=== PATIENT | female | born 1940 | race Caucasian/White ===

== ENCOUNTER 2017-11-28 08:07 | Day surgery (SDC) | payer OTHER ==
[2013-03-29 13:47] VITALS: BMI 26.4
[2017-11-28] MEDS ORDERED: LIDOCAINE 1% 20 ML MDV ID STA (08:31)
[2017-11-28] MEDS ORDERED: DIPRIVAN 20 ML VIAL IVP ONE (09:45)
[2017-11-28] MEDS ORDERED: VERSED ONE (09:45)
[2017-11-28 14:58] VITALS: BP 110/65; TEMP 97.5
--- NOTE | 2017-11-29 10:24 | OP ---
PROCEDURE: COLONOSCOPY TO THE CECUM SNARE POLYPECTOMY. ENDOSCOPIST: Bijan GOODE M.D. INDICATION: HISTORY OF POLYPS INSTRUMENT: [employer]-190. MEDICATION: PER ANESTHESIA. PROCEDURE: The patient was positioned for colonoscopy. The digital rectal exam was negative. The colonoscope was inserted through the anus and advanced to the cecum. The cecum was identified using the ileocecal valve and the appendiceal orifice as landmarks. The scope was slowly withdrawn through an adequately prepped colon. The [place] Bowel Prep Score equals 9. A small polyp in the ascending colon removed using cold snare polypectomy. 6mm polyp at 50cm removed using snare cautery. Scattered diverticulosis noted in the left colon. Hemorrhoids seen on retroflex exam. The patient tolerated the procedure without immediate complication. Withdraw time 9 minutes and 39 seconds. PLAN: 1. Repeat as needed. CC: Dr. Ousmane RAINEY
== END 2017-11-28 10:50 | disposition home or self-care (01) ==
LOC: SURG 08:07
PROVIDERS: ATTEND Internal Medicine Gastroenterology
DX: Z09 Encounter for follow-up examination after completed treatment for conditions other than malignant neoplasm (principal); Z86.010 Personal history of colon polyps; D12.2 Benign neoplasm of ascending colon; K57.30 Diverticulosis of large intestine without perforation or abscess without bleeding; K64.9 Unspecified hemorrhoids

== ENCOUNTER 2021-02-17 11:07 | Inpatient (IN) ==
[2021-02-17 11:23] VITALS: BMI 24.3
[2021-02-17 12:05] LABS: BASOPHILS % (AUTO) 0.4 % (0.0-3.0); EOSINOPHILS # (AUTO) 0.2 K/ul (0.0-0.7); HEMATOCRIT 42.2 % (37.0-47.0); HEMOGLOBIN 14.1 g/dl (12.0-16.0); IMMATURE GRANULOCYTE % (AUTO) 0.3 % (0.0-5.0); LYMPHOCYTES # (AUTO) 2.3 K/uL (0.60-3.4); LYMPHOCYTES % (AUTO) 25.5 (10.0-50.0); MEAN CORPUSCULAR HEMOGLOBIN 31.7 pg (27.0-31.0); MEAN CORPUSCULAR HGB CONC 33.4 (31.8-35.4); MEAN CORPUSCULAR VOLUME 94.8 fl (81.0-99.0); MONOCYTES # (AUTO) 0.7 K/uL (0.4-2.0); MONOCYTES % (AUTO) 7.3 (0-10); NEUTROPHILS # (AUTO) 5.7 K/ul (2.0-6.9); NEUTROPHILS % (AUTO) 64.5 % (42.2-75.2); PLATELET COUNT 220 10^3/uL (140-440); RDW COEFFICIENT OF VARIATION 13.2 % (11.6-14.8); RED BLOOD COUNT 4.45 10^6/ul (4.20-5.40); WHITE BLOOD COUNT 8.89 K/ul (4.6-10.2)
[2021-02-17 12:18] LABS: ALANINE AMINOTRANSFERASE 11.3 U/L (0-35); ALBUMIN 4.32 g/dL (3.5-5.0); ALKALINE PHOSPHATASE 85.4 U/L (53-141); ASPARTATE AMINO TRANSFERASE 21.5 U/L (14-36); BILIRUBIN,TOTAL 1.33 mg/dL (0.2-1.3); BLOOD UREA NITROGEN 17.8 mg/dL (7-17); CALCIUM 9.46 mg/dL (8.4-10.2); CARBON DIOXIDE 27.2 mmol/L (22-30.0); CHLORIDE 106.7 mmol/L (98-107); CREATININE 0.74 mg/dL (0.60-1.30); GLUCOSE 87.1 mg/dL (74-106); LIPASE 111.1 U/L (23-300); POTASSIUM 4.11 mmol/L (3.5-5.1); SODIUM 139.1 mmol/L (134.5-145); TOTAL PROTEIN 7.48 g/dL (6.3-8.2)
--- NOTE | 2021-02-17 12:30 | ED.PDOC ---
General ED Provider: Dr. ELIAZAR ALEXANDER Chief Complaint: Chest Wall Injury/Pain Stated Complaint: Chest wall pain=lt side over breast. Worse with inspiration and coughing Time Seen by Provider: 02/17/21 11:50 Mode of Arrival: Walk-In Information Source: Patient Exam Limitations: No limitations Primary Care Provider: BELLO LAN Nursing and Triage Documentation Reviewed and Agree: Yes Does patient meet sepsis criteria?: No System Inflammatory Response Syndrome: Not Applicable Sepsis Protocol: For patient's 13 years and over: Temp is 96.8 and below OR 101 and greater Pulse >90 BPM Resp >20/minute Acutely Altered Mental Status Are patient's symptoms suggestive of a new infection, such as: -Pneumonia -Skin, Soft Tissue -Endocarditis -UTI -Bone, Joint Infection -Implantable Device -Acute Abdominal Infection -Wound Infection -Meningitis -Blood Stream Catheter Infection -Unknown Cardiovascular Complaint Exam Chest Pain Complaint/Exam Onset: Gradual Duration: 8 hrs Symptoms Are: Still present Timing: Intermittent Length of Chest Pain Episodes: 1-2 min Initial Severity: Moderate Current Severity: Mild Location: Reports Left anterior and Left lateral Pain Radiates: Reports None Character: Reports Sharp Alleviating: Reports Rest Associated Signs and Symptoms: Denies Diaphoresis, Nausea, Vomiting, Fever, Palpitations, Cough, Hemoptysis, Back pain, Abdominal pain, Dizziness, Short of air, Calf pain and Calf swelling Related History: Reports Similar episode Related Surgical History: Reports CABG History of Healthcare-Acquired Pneumonia: Reports No AMI/ACS Risk Factors: Reports None TAD Risk Factors: Reports None Pulmonary Embolism Risk Factors: Reports None Prior Care for this Complaint: Yes Recent Stress Test: No Recent Echo/LV Function: No JVD Present: No Subcutaneous Emphysema Present: No Diminshed Breath Sounds: No Reproducible Chest Wall Pain: Yes Bilateral Pulses Present: Yes Unequal Pulses Noted: Yes Chest Picture: 1. If Risk Factors for AMI/ACS Consider: EKG and Cardiac Enzymes Review of Systems Review Of Systems Constitutional: Reports No symptoms Eyes: Reports No symptoms Ears, Nose, Mouth, Throat: Reports No symptoms Respiratory: Reports Cough Cardiac: Reports Chest pain GI: Reports No symptoms : Reports No symptoms Musculoskeletal: Reports No symptoms Skin: Reports No symptoms Neurological: Reports No symptoms Endocrine: Reports No symptoms Hematologic/Lymphatic: Reports No symptoms All Other Systems: Reviewed and Negative [facility] Medical History (Updated 02/17/21 @ 15:13 by ELIAZAR ALEXANDER DO) Hyperlipidemia Hypertension Family History (Updated 02/17/21 @ 12:59 by ELIAZAR ALEXANDER DO) Mother Breast cancer, right, Onset Age: 53 Other Hypertension Social History Smoking and tobacco status: Never smoker Substance use type: does not use Surgical History Status post coronary artery bypass graft Female Reproductive History Menstrual Hx Hysterectomy: No Hx Tubal Ligation: No Physical Exam Physical Exam Appearance: Reports Well-appearing Ill-appearing: Not Applicable Pain Distress: Mild Eyes: Reports PREETI, EOMI, Conjunctiva clear and Conjunctiva inflammed ENT: Reports Ears normal and Nose normal Neck: Supple Respiratory: Reports Airway patent Cardiovascular: Reports RRR, Pulses normal, No rub and No murmur GI/: Reports Soft, Nontender, No masses and Bowel sounds normal Musculoskeletal: Reports Normal strength, ROM intact and No edema Skin: Reports Warm, Dry and Normal color Neurological: Reports Sensation intact, Motor intact, Reflexes intact, Cranial nerves intact, Alert, Oriented, Disoriented and Alert to verbal Psychiatric: Reports Affect appropriate, Mood appropriate and Anxious Interpretation Radiology Interpretation Exam Interpreted: Portable CXR (No acute cardiopulmonary process) EKG Interpretation Time of EKG #1: 11:54 Rate: John Paul Ectopy: PACs [place]: NL ST Segment: Normal Interpretation: Sinus Bradycardia Physician Notification Case Discussed Physician Notified: Dr Lan-admit for observation -I will come to ER and see patient Time of Notification: 13:50 Critical Care Note Critical Care Note Total Critical Care Time (mins): 0 Course Course Hematology/Chemistry: 02/17/21 12:00 02/17/21 12:00 Orders, Labs, Meds: Lab Review 02/17/21 02/17/21 12:00 12:00 WBC 8.89 RBC 4.45 Hgb 14.1 Hct 42.2 MCV 94.8 MCH 31.7 H MCHC 33.4 RDW Coeff of Leanne 13.2 Plt Count 220 Immature Gran % (Auto) 0.3 Neut % (Auto) 64.5 Lymph % (Auto) 25.5 Darke % (Auto) 7.3 Eos % (Auto) 2.0 Baso % (Auto) 0.4 Neut # (Auto) 5.7 Lymph # (Auto) 2.3 Darke # (Auto) 0.7 Eos # (Auto) 0.2 Baso # (Auto) 0.0 Immature Gran # (Auto) 0.0 Sodium 139.1 Potassium 4.11 Chloride 106.7 Carbon Dioxide 27.2 Anion Gap 9.31 BUN 17.8 H Creatinine 0.74 Estimated GFR (MDRD) 75.00 BUN/Creatinine Ratio 24.05 Glucose 87.1 Calcium 9.46 Total Bilirubin 1.33 H AST 21.5 ALT 11.3 Alkaline Phosphatase 85.4 Troponin I < 0.012 Total Protein 7.48 Albumin 4.32 Globulin 3.16 Albumin/Globulin Ratio 1.36 Lipase 111.1 Orders Category Date Time Status EKG-(ED ONLY) Stat CARDIO 02/17/21 11:46 Completed EKG-(IP & OP ONLY) Routine CARDIO 02/17/21 17:00 Ordered ACTIVITY .Up ad Anju CARE 02/17/21 17:00 Active BLOOD GLUCOSE MONITORING 0630,1100,1700,2100 CARE 02/17/21 17:00 Active INTAKE & OUTPUT Q8HR CARE 02/17/21 17:00 Active VITAL SIGNS Q8HR CARE 02/17/21 17:00 Active CARDIAC DIET DIETARY 02/17/21 Dinner Ordered IV [ED IV/MEDIPORT/POWERPORT] .ONCE EMERGENCY 02/17/21 15:13 Active CBC W/ AUTO DIFF Stat LAB 02/17/21 12:00 Completed CMP [COMPREHENSIVE METABOLIC PANEL] Stat LAB 02/17/21 12:00 Completed CREATINE KINASE Q8H LAB 02/17/21 23:00 Ordered CREATINE KINASE Q8H LAB 02/18/21 07:00 Ordered LIPASE Stat LAB 02/17/21 12:00 Completed RESPIRATORY PANEL 2.1 (PCR) Stat LAB 02/17/21 15:54 Received TROPONIN I Q8H LAB 02/17/21 23:00 Ordered TROPONIN I Q8H LAB 02/18/21 07:00 Ordered TROPONIN I Stat LAB 02/17/21 12:00 Completed 0.9 % Sodium Chloride [Saline Flush] MEDS 02/17/21 15:13 Active 1 syr IVF PRN PRN Ascorbic Acid [Vitamin C] MEDS 02/18/21 09:00 Active 500 mg PO DAILY Dexamethasone Sod Phosphate [Decadron] MEDS 02/17/21 17:30 Active 4 mg IVP Q8HR Ketorolac Tromethamine [Toradol] MEDS 02/17/21 16:59 Discontinued 10 mg PO ONCE ONE Ketorolac Tromethamine [Toradol] MEDS 02/17/21 15:17 Discontinued 30 mg IVP ONCE STA Lovastatin [Mevacor] MEDS 02/18/21 09:00 Ordered 20 mg PO DAILY Metoprolol Tartrate [Lopressor] MEDS 02/18/21 09:00 Ordered 25 mg PO DAILY Ondansetron HCl/Pf [Zofran 4 mg/2 ml] MEDS 02/17/21 16:59 Active 4 mg IM Q6H PRN Timolol Maleate 0.25% [Timoptic 0.25% Opth] MEDS 02/17/21 21:00 Ordered 1 drop RIGHTEYE BID aspirin,buffd-calcium carb-mag MEDS 02/18/21 09:00 Ordered 325 mg PO DAILY calcium carbonate-vitamin D3 MEDS 02/17/21 21:00 Ordered 1 tab PO BID vitamin E MEDS 02/18/21 09:00 Ordered 400 unit PO DAILY RESUSCITATION STATUS Routine OTHERS 02/17/21 16:59 Ordered CHEST, 1V AP ONLY Stat RADS 02/17/21 11:46 Completed Medications Generic Name Dose Route Start Last Admin Trade Name Freq PRN Reason Stop Dose Admin Ascorbic Acid 500 mg 02/18/21 09:00 Ascorbic Acid 500 Mg Tablet PO DAILY [facility] Dexamethasone Sodium Phosphate 4 mg 02/17/21 17:30 Dexamethasone Sod Phos 4 Mg/Ml Inj IVP Q8HR [facility] Lovastatin 20 mg 02/18/21 09:00 Lovastatin 20 Mg Tablet PO DAILY [facility] Metoprolol Tartrate 25 mg 02/18/21 09:00 Metoprolol Tartrate 25 Mg Tablet PO DAILY JAIMIE Non-Formulary Medication 325 mg 02/18/21 09:00 Aspirin,Buffd-Calcium Carb-Mag PO DAILY JAIMIE Non-Formulary Medication 1 tab 02/17/21 21:00 Calcium Carbonate-Vitamin D3 PO BID JAIMIE Non-Formulary Medication 400 unit 02/18/21 09:00 Vitamin E PO DAILY JAIMIE Ondansetron HCl 4 mg 02/17/21 16:59 Ondansetron Hcl/Pf 4 Mg/2 Ml Sdv IM Q6H PRN Nausea / Vomiting Sodium Chloride 1 syr 02/17/21 15:13 02/17/21 15:58 0.9% Sodium Chloride 10 Ml Disp.Syrin IVF 1 syr PRN PRN Administration To flush IV Timolol Maleate 1 drop 02/17/21 21:00 Timolol Maleate 5 Ml Opth Inez RIGHTEYE BID JAIMIE Discontinued Medications Generic Name Dose Route Start Last Admin Trade Name Freq PRN Reason Stop Dose Admin Ketorolac Tromethamine 30 mg 02/17/21 15:17 02/17/21 15:57 Ketorolac Tromethamine 30 Mg/Ml Vial IVP 02/17/21 15:18 30 mg ONCE STA Administration Ketorolac Tromethamine 10 mg 02/17/21 16:59 Ketorolac Tromethamine 10 Mg Tablet PO 02/17/21 17:00 ONCE ONE Vital Signs: Temp Pulse Resp BP Pulse Ox 02/17/21 11:13 97.9 F 61 18 174/84 H 96 QUE Risk Score QUE Risk Score: Risk Score Odds of by 30D 0 0.1 (0.1-0.2) 1 0.3 (0.2-0.3) 2 0.4 (0.3-0.5) 3 0.7 (0.6-0.9) 4 1.2 (1.0-1.5) 5 2.2 (1.9-2.6) 6 3.0 (2.5-3.6) 7 4.8 (3.8-6.1) Discharge Plan Discharge Patient Disposition: PLACED OBSERVATION Discharge Problem: Chest wall pain ED Provider: ELIAZAR ALEXANDER Condition: Fair Physician Progress Note: []
[2021-02-17 12:32] LABS: TROPONIN I < 0.012 ng/ml (0.0000-0.120)
--- NOTE | 2021-02-17 12:51 | DI ---
EXAM: Chest one view, frontal view only. HISTORY: Chest pain. COMPARISON: 10/01/2015. FINDINGS: Sternotomy wires and mediastinal clips noted. Atherosclerotic calcifications present. The heart size is normal. There is no pulmonary vascular congestion. Band-like opacity in the right up per lung. Previous CT demonstrated multifocal opacities, most suggestive of this as scarring. Other carter, the lungs are clear. No pleural effusion or pneumothorax is seen. No acute osseous abnormalit y is identified. Since the prior study, there has been no significant interval change. IMPRESSION: No acute cardiopulmonary process.
[2021-02-17] MEDS ORDERED: TORADOL IM STA (14:47)
[2021-02-17] MEDS ORDERED: TORADOL IVP STA (15:17)
[2021-02-17 16:31] LABS: BORDETELLA PARAPERTUSSIS (PCR) NOT DETECTED (NOT DETECT); BORDETELLA PERTUSSIS (PCR) NOT DETECTED (NOT DETECT); CHLAMYDIA PNEUMONIAE (PCR) NOT DETECTED (NOT DETECT); CORONAVIRUS 229E (PCR) NOT DETECTED (NOT DETECT); CORONAVIRUS HKU1 (PCR) NOT DETECTED (NOT DETECT); CORONAVIRUS NL63 (PCR) NOT DETECTED (NOT DETECT); CORONAVIRUS OC43 (PCR) NOT DETECTED (NOT DETECT); HUMAN METAPNEUMOVIRUS (PCR) NOT DETECTED (NOT DETECT); HUMAN RHINOVIRUS/ENTEROV (PCR) NOT DETECTED (NOT DETECT); INFLUENZA B (PCR) NOT DETECTED (NOT DETECT); MYCOPLASMA PNEUMONIAE (PCR) NOT DETECTED (NOT DETECT); PARAINFLUENZA VIRUS 1 (PCR) NOT DETECTED (NOT DETECT); PARAINFLUENZA VIRUS 2 (PCR) NOT DETECTED (NOT DETECT); PARAINFLUENZA VIRUS 3 (PCR) NOT DETECTED (NOT DETECT); PARAINFLUENZA VIRUS 4 (PCR) NOT DETECTED (NOT DETECT); RESPIRATORY SYNCYTIAL V (PCR) NOT DETECTED (NOT DETECT); SARS_COV_2 (PCR) NOT DETECTED (NOT DETECT)
[2021-02-17] MEDS ORDERED: TORADOL PO ONE (16:59)
[2021-02-17] MEDS ORDERED: ZOFRAN 4 MG/2 ML IM PRN (16:59)
[2021-02-17 17:21] LABS: ADENOVIRUS (PCR) NOT DETECTED (NOT DETECT)
[2021-02-17] MEDS: DECADRON IVP SCH ×2 (17:43→21:57)
[2021-02-17] MEDS ORDERED: CALCIUM 500 + VIT D 5 MCG (200 IU) TABLET PO SCH (21:00)
[2021-02-17] MEDS ORDERED: LUMIGAN 0.03% EACHEYE SCH (21:00)
[2021-02-17] MEDS ORDERED: TIMOPTIC 0.25% OPTH RIGHTEYE SCH (21:00)
[2021-02-17] MEDS: TIMOPTIC 0.25% OPTH EACHEYE SCH (21:29)
[2021-02-17 22:57] LABS: CREATINE KINASE 25.3 U/L (30-135)
[2021-02-17 23:11] LABS: TROPONIN I < 0.012 ng/ml (0.0000-0.120)
[2021-02-17] MEDS ORDERED: ATROPINE SULFATE PFS IVP PRN (23:26)
[2021-02-17] MEDS ORDERED: TYLENOL PO PRN (23:26)
[2021-02-17] MEDS ORDERED: NITROSTAT SL PRN (23:26)
[2021-02-18 05:31] VITALS: BP 119/66; TEMP 98
[2021-02-18] MEDS: DECADRON IVP SCH ×2 (05:32→13:32)
[2021-02-18 06:39] LABS: BASOPHILS % (AUTO) 0.1 % (0.0-3.0); HEMATOCRIT 45.6 % (37.0-47.0); HEMOGLOBIN 14.9 g/dl (12.0-16.0); IMMATURE GRANULOCYTE % (AUTO) 0.5 % (0.0-5.0); LYMPHOCYTES # (AUTO) 1.1 K/uL (0.60-3.4); LYMPHOCYTES % (AUTO) 14.7 (10.0-50.0); MEAN CORPUSCULAR HEMOGLOBIN 31.2 pg (27.0-31.0); MEAN CORPUSCULAR HGB CONC 32.7 (31.8-35.4); MEAN CORPUSCULAR VOLUME 95.4 fl (81.0-99.0); MONOCYTES # (AUTO) 0.1 K/uL (0.4-2.0); MONOCYTES % (AUTO) 0.8 (0-10); NEUTROPHILS # (AUTO) 6.3 K/ul (2.0-6.9); NEUTROPHILS % (AUTO) 83.9 % (42.2-75.2); PLATELET COUNT 237 10^3/uL (140-440); RDW COEFFICIENT OF VARIATION 13.2 % (11.6-14.8); RED BLOOD COUNT 4.78 10^6/ul (4.20-5.40); WHITE BLOOD COUNT 7.55 K/ul (4.6-10.2)
[2021-02-18 06:51] LABS: ALKALINE PHOSPHATASE 82.4 U/L (53-141); ASPARTATE AMINO TRANSFERASE 25.4 U/L (14-36); BILIRUBIN,TOTAL 1.08 mg/dL (0.2-1.3); BLOOD UREA NITROGEN 21.7 mg/dL (7-17); CALCIUM 9.28 mg/dL (8.4-10.2); CARBON DIOXIDE 27.3 mmol/L (22-30.0); CHLORIDE 105.2 mmol/L (98-107); CREATINE KINASE 30.4 U/L (30-135); CREATININE 0.68 mg/dL (0.60-1.30); GLUCOSE 140.4 mg/dL (74-106); POTASSIUM 4.31 mmol/L (3.5-5.1); SODIUM 140.8 mmol/L (134.5-145); TOTAL PROTEIN 7.92 g/dL (6.3-8.2)
[2021-02-18 06:57] LABS: ALANINE AMINOTRANSFERASE 14.2 U/L (0-35)
[2021-02-18 07:11] LABS: TROPONIN I < 0.012 ng/ml (0.0000-0.120)
[2021-02-18] MEDS ORDERED: ASPIRIN EC PO SCH (08:30)
[2021-02-18] MEDS ORDERED: CALCIUM 500 + VIT D 5 MCG (200 IU) TABLET PO SCH (09:00)
[2021-02-18] MEDS ORDERED: VITAMIN E PO SCH (09:00)
[2021-02-18] MEDS ORDERED: VITAMIN C PO SCH (09:00)
[2021-02-18] MEDS ORDERED: LOPRESSOR PO SCH (09:00)
[2021-02-18] MEDS ORDERED: MEVACOR PO SCH ×2 (09:00→17:00)
[2021-02-18] MEDS: TIMOPTIC 0.25% OPTH EACHEYE SCH (09:48)
[2021-02-18] MEDS ORDERED: TORADOL IVP ONE (13:15)
[2021-02-18] MEDS ORDERED: LUMIGAN 0.03% EACHEYE SCH (17:00)
--- NOTE | 2021-02-19 08:55 | PN ---
DATE OF SERVICE: 02/17/2021 SUBJECTIVE: The patient was seen and examined in the emergency room. She came to the emergency room with chest pain which was atypical but had some component of coronary insufficiency. The patient had left sided chest pain mostly chest wall type of pain with tenderness. The patient had pain on deep breathing. No exertional chest pain noted. The patient had coronary artery bypass surgery. She is very anxious. Her EKG is sinus rhythm. No ST-T wave change. Cardiac markers were negative. Chest x-ray was negative. COVID test negative. ASSESSMENT: 1. Chest pain seems to be noncardiac. The patient's pain also radiates to the left arm. That is the only component of the pain which is hard to explain on the basis of musculoskeletal pain. The patient is going to hospitalized with routine telemetry orders. CONDITION: Stable. TIME SPENT: More than 30 minutes. Plan and coordination of the patient's care discussed in the presence of nurse. REDD
--- NOTE | 2021-02-19 09:17 | PN ---
DATE OF SERVICE: 02/18/2021 SUBJECTIVE: 81 year old white female hospitalized with chest pain. The patient's chest pain seems to be noncardiac. The patient did not have any chest pain while she is in the hospital. Her pleuritic type of pain has practically subsided. She has a mild pain. Still breathing pain noted. REVIEW OF SYSTEMS: CONSTITUTIONAL: No night sweats. No fatigue, malaise, lethargy. No fever or chills. Feeling better. HEENT: Eyes: No visual changes. No eye pain. No eye discharge. ENT: No runny nose. No epistaxis. No sinus pain. No sore throat. No odynophagia. No congestion. RESPIRATORY: No cough, no congestion. No hemoptysis. No shortness of breath. Mild chest wall pain practically has subsided. Pleuritic pain has subsided. CARDIOVASCULAR: No angina symptoms. No CHF symptoms. No atypical chest pain for CAD. No palpitations. No PND. No orthopnea. GASTROINTESTINAL: No abdominal pain. No nausea or vomiting. No diarrhea or constipation. No hematemesis. No hematochezia. GENITOURINARY: No urgency. No frequency. No dysuria. No hematuria. No obstructive symptoms. No discharge. No pain. No significant abnormal bleeding. MUSCULOSKELETAL: No musculoskeletal pain; no joint swelling. NEUROLOGICAL: No headache. No neck pain. No syncope. No seizures. No dizziness. PSYCHIATRIC: Not anxious. No depression. No suicidal thoughts. No homicidal thoughts. SKIN: No rash. No lesions. No wounds. ENDOCRINE: No unexplained weight loss. No weight gain. HEMATOLOGIC/LYMPHATIC: No anemia. No purpura. No petechiae. No prolonged or excessive bleeding. No palpable lymph nodes. PHYSICAL EXAMINATION: VITAL SIGNS: Temperature 98, pulse 65, respiratory rate 18, blood pressure 120/66 and pulse ox 98%. HEENT: Head normocephalic, atraumatic. Eyes: Extraocular muscles are intact. Pupils are equal, round and reactive to light and accommodation. Ears: No lesions. Nose appeared normal. Throat: No exudate or erythema. NECK: Supple. No JVD, no carotid bruit. No lymphadenopathy or thyromegaly. LUNGS: Decreased breath sounds but clear to auscultation. Percussion note normal. Chest symmetrical. HEART: S1, S2, no S3. No murmurs. No cyanosis or clubbing. No ascites. Pulses: Dorsalis pedis and posterior tibial pulses +1 to +2 bilaterally. ABDOMEN: Soft. Nontender. Bowel sounds active. No CVA tenderness. No mass felt. EXTREMITIES: No edema. Full range of motion of all extremities, equal. NEUROLOGIC: No focal deficit. Cranial nerves II through XII are grossly intact. No headache. No double vision. SKIN: Not dry. Intact. Turgor - normal. LYMPHATIC: No palpable lymph nodes/no lymphedema. MUSCULOSKELETAL: Normal joints with no swelling. Muscle tone is normal. LABS: hgb 14, hct 45, WBC 7,500 normal differential, creatinine 0.6, BUN 21, potassium 4.3. ASSESSMENT: 1. Chest pain wall,, chest pain, pleuritic type of pain seems to be under control PLAN: 1. Continue telemetry, the patient's echocardiogram showed normal LV contractility and LVH. LA enlargement. 2. Negative cardiac markers. 3. EKG sinus rhythm unchanged 4. Chest pain non-cardiac. The patient had a stress echo done in October. The patient declined to have repeat stress echo or sestamibi done. 5. The patient wants to go home. She is going to be discharged home. 6. No change in the medication 7. Before discharge the patient is going to get 1cc Decadron and Toradol 30mg IV one dose for pleurisy. 8. The patient is advised to go to the nearest ER in case chest pain recurs. TIME SPENT: More than 30 minutes. Plan and coordination of the patient's care discussed in the presence of nurse. REDD
--- NOTE | 2021-02-19 09:18 | PN ---
02/17/2021: Level 5 02/18/2021: D as in discharge. MTDD
--- NOTE | 2021-02-20 10:58 | HP ---
DATE OF SERVICE: 02/17/21 HISTORY OF PRESENT ILLNESS: This is an 81-year-old white female who presents to the emergency room with chest wall pain on the left side over her breast. She denies shortness of breath or sweating. PAST MEDICAL HISTORY: Urinary incontinence with prolapsed bladder Dizziness History of herpes zoster in July of 2018 GERD Glaucoma Coronary artery disease Hypertension Hiatal hernia Hyperglycemia Right knee osteoarthritis Asthma Degenerative disk disease of the L-spine Hearing loss PAST SURGICAL HISTORY: CABG in 2001 Colonoscopy in November of 2017 REVIEW OF SYSTEMS: CONSTITUTIONAL: No night sweats. No fatigue, malaise, lethargy. No fever or chills. No sweating. HEENT: Eyes: No visual changes. No eye pain. No eye discharge. ENT: No runny nose. No epistaxis. No sinus pain. No sore throat. No odynophagia. No ear pain. No congestion. RESPIRATORY: No cough, no congestion. No hemoptysis. No shortness of breath. CARDIOVASCULAR: Positive for chest wall pain, worse with movement, deep breathing. No angina symptoms. No CHF symptoms. No atypical chest pain for CAD. No palpitations. No PND. No orthopnea. GASTROINTESTINAL: No abdominal pain. No nausea or vomiting. No diarrhea or constipation. No hematemesis. No hematochezia. GENITOURINARY: No urgency. No frequency. No dysuria. No hematuria. No obstructive symptoms. No discharge. No pain. No significant abnormal bleeding. MUSCULOSKELETAL: No musculoskeletal pain. No joint swelling. No arthritis. NEUROLOGICAL: No headache. No neck pain. No syncope. No seizures. No dizziness. PSYCHIATRIC: Not anxious. No depression. No suicidal thoughts. No homicidal thoughts. SKIN: No rash. No lesions. No wounds. ENDOCRINE: No unexplained weight loss. No weight gain. HEMATOLOGIC/LYMPHATIC: No anemia. No purpura. No petechiae. No prolonged or excessive bleeding. No palpable lymph nodes. PERSONAL/FAMILY/SOCIAL HISTORY: She is . She lives at home alone. She is a nonsmoker. No alcohol or illicit drug use. MEDICATIONS: Timolol one drop both eyes b.i.d. Gilchrist-3 Fatty acids-fish oil one each p.o. daily Aspirin 325 mg p.o. daily Vitamin C 500 mg p.o. daily Calcium Carbonate - Vitamin D3 one tab p.o. daily Metoprolol Tartrate 25 mg p.o. daily Lovastatin 20 mg p.o. daily Bimatoprost (Lumigan) one drop both eyes q.p.m. ALLERGIES: LEVOBUNOLOL PHYSICAL EXAMINATION: GENERAL: Alert and oriented. VITAL SIGNS: Temperature 97.9, heart rate 61, respirations 18, blood pressure 174/84, pulse ox 96%. HEENT: Head normocephalic, atraumatic. Eyes: Extraocular muscles are intact. Pupils are equal, round and reactive to light and accommodation. Ears: No lesions. Nose appeared normal. Throat: No exudate or erythema. NECK: Supple. No JVD, no carotid bruit. No lymphadenopathy or thyromegaly. LUNGS: Diminished breath sounds. Clear to auscultation. Percussion note normal. Chest symmetrical. No chest wall tenderness. HEART: S1, S2, no S3. No murmur. No cyanosis or clubbing. No ascites. Pulses: Dorsalis pedis and posterior tibial pulses +1 to +2 bilaterally. ABDOMEN: Soft. Nontender. Bowel sounds active. No CVA tenderness. No mass felt. EXTREMITIES: No edema. Full range of motion of all extremities, equal. NEUROLOGIC: No focal deficit. Cranial nerves II through XII are grossly intact. No headache, no double vision or headache. SKIN: Not dry. Intact. Turgor - normal. LYMPHATIC: No palpable lymph nodes/no lymphedema. MUSCULOSKELETAL: Normal joints with no swelling. Muscle tone is normal. Chest x-ray shows no acute process. EKG shows normal sinus rhythm. White count 8.8, hemoglobin 14.1, hematocrit 42.2, platelets 220. Sodium 139, potassium 4.1, BUN 17, creatinine 0.74, glucose 87, troponin less than 0.012. Alkaline phosphatase 85, total bili 1.33, lipase 111. AST 21, ALT 11. ASSESSMENT: 1. LEFT-SIDED CHEST WALL PAIN, PLEURITIC IN NATURE 2. HYPERTENSION 3. HISTORY OF CORONARY ARTERY DISEASE WITH CABG PLAN: 1. We will admit. 2. Routine telemetry orders. 3. CBC, CMP daily. 4. Toradol 30 mg IV q.8hr p.r.n. 5. Start 1 cc/4 mg Decadron IM daily. 6. 2D echo. 7. Continue home medications. 8. UA with culture. 9. Will monitor cardiac markers. 10. Regular diet. 11. Oxygen 1 to 2L as needed. 12. Will follow closely. TIME SPENT: More than 70 minutes. MTDD
--- NOTE | 2021-02-23 07:59 | ECHO2D ---
Date of Exam: 02/18/2021 Ordering Physician: DR. BELLO LAN Room #:[id number] Reason for Echo: CHEST PAIN, HX CABG M-Mode Normal Adult Results LV Dimensions Normal Adult Results AoV Opening excursions >1.6 >1.6 LVEDD-base- 3.5-5.8 4.6 Ao root dimensions 2.0-3.7 2.9 LVESD-base- 3.1-4.6 L. Atrium dimensions 1.9-3.8 3.9 Post. Wall thickness 0.8-1.1 1.1 IV septum (thickness) 0.7-1.2 1.2 Post. Wall excursion 0.72-1.3 NORMAL Septal motion NORMAL Systolic motion R. Ventricular cavity 1.5-2.0 NORMAL LVEF 60% 66% Paradoxical septal wall motion NORMAL 2-D : 2-D M Mode Echocardiogram was performed using apical four chamber and left parasternal long and short axis views. Mitral, tricuspid and aortic valves appear to be normal. Contractility of the left ventricle seems to be normal, so is the cavity size. Left atrial cavity size and aortic root appear to be normal. There is no pericardial effusion. There is no thrombus noted in the left ventricle or left atrial cavity. M-MODE: MV: NORMAL AV: NORMAL TV: NORMAL PV: CHAMBER SIZE: NORMAL WALL MOTION: NORMAL PERICARDIUM: NORMAL INTERPRETATION: 1. BORDERLINE LEFT VENTRICLE HYPERTROPHY 2. NORMAL LEFT VENTRICLE CONTRACTILITY 3. NORMAL VALVES MTDD
--- NOTE | 2021-02-23 10:28 | DS ---
DATE OF SERVICE: 02/18/21 FINAL DIAGNOSIS: 1. CHEST WALL PAIN, LEFT-SIDED 2. PLEURISY 3. HYPERTENSION 4. CORONARY ARTERY DISEASE 5. HISTORY OF CABG DISCHARGE INSTRUCTIONS: Discharge the patient home. MEDICATIONS AT DISCHARGE: Ascorbic Acid (Vitamin C) 500 mg capsule p.o. daily Aspirin micmeumq-ddaydji-Gkxi-mag 325 mg p.o. daily Calcium Carbonate-Vitamin D3 one tablet p.o. daily Lovastatin 20 mg p.o. daily Lumigan eyedrops one drop both eyes q.p.m. Metoprolol Tartrate 25 mg p.o. daily [place] 3 fatty acids-fish oil one each p.o. daily Timolol Maleate one drop both eyes b.i.d. Vitamin E 400 unit p.o. daily NEW PRESCRIPTIONS: None DIET INSTRUCTIONS: Heart Healthy ACTIVITY: As tolerated. SMOKING: Never smoker DISEASE SPECIFIC EDUCATION: Chest pain How to wash hands Noncardiac chest pain Covid-19 HOSPITAL COURSE: This is a 81-year-old white female who presented to the emergency room with left-sided chest wall pain. She denied any shortness of breath or sweating. She does have known history of coronary artery disease. On admission in ER cardiac enzymes were negative. EKG was normal. She was admitted for further evaluation with serial cardiac markers which remain negative. Placed on 24 hour telemetry which was also normal. Dr. Romeo did an echo which showed LV contractility was normal and mild LVH. She had a stress echo done in October which was normal. She declined to have a repeat stress echo or Sestamibi done. The patient's chest pain is noncardiac in nature. She responded well. She received steroids in the emergency room along with antiinflammatory Toradol. She has responded well to this. Today she will receive another Decadron and Toradol dose before she goes home. Blood pressure was elevated in the emergency room likely due to pain. However, this has been normal for the past 12 hours. Chest x-ray was normal. There was no acute process. She has responded well to treatment, will send her home with a steroid pack and followup with her in the office next week. TIME SPENT: More than 60 minutes. [facility]
== END 2021-02-18 14:21 | disposition home or self-care (01) | DRG 195 ==
LOC: ED 11:07 → MEDSURG A 11:07 → OBSVTOIN 17:40 → MEDSURG A 18:22
PROVIDERS: ADMIT Internal Medicine; ATTEND Internal Medicine
DX: R05 Cough; R09.1 Pleurisy; I25.10 Atherosclerotic heart disease of native coronary artery without angina pectoris; I10 Essential (primary) hypertension; Z20.822 Contact with and (suspected) exposure to COVID-19

== ENCOUNTER 2022-03-25 10:10 | Inpatient (IN) ==
[2022-03-25] MEDS ORDERED: MORPHINE 2 MG/ML SYRINGE IVP ONE ×2 (10:43→12:04)
[2022-03-25] MEDS ORDERED: GI COCKTAIL PO ONE (10:43)
[2022-03-25] MEDS ORDERED: ASPIRIN CHEWABLE PO STA (10:43)
--- NOTE | 2022-03-25 10:46 | ED.PDOC ---
General ED Provider: Dr. NICHOLAS SANTILLAN MD Chief Complaint: Chest Pain Stated Complaint: mild anterior chest pain ache rad to back off and on since Tuesday, no injury, not short of breath, hx cabg, no dm Time Seen by Provider: 03/25/22 10:10 Mode of Arrival: Walk-In Information Source: Patient Primary Care Provider: BELLO ROMEO Nursing and Triage Documentation Reviewed and Agree: Yes Does patient meet sepsis criteria?: No System Inflammatory Response Syndrome: Not Applicable Sepsis Protocol: For patient's 13 years and over: Temp is 96.8 and below OR 101 and greater Pulse >90 BPM Resp >20/minute Acutely Altered Mental Status Are patient's symptoms suggestive of a new infection, such as: -Pneumonia -Skin, Soft Tissue -Endocarditis -UTI -Bone, Joint Infection -Implantable Device -Acute Abdominal Infection -Wound Infection -Meningitis -Blood Stream Catheter Infection -Unknown Review of Systems Review Of Systems Constitutional: Denies Fever Eyes: Denies Vision change Ears, Nose, Mouth, Throat: Denies Throat pain Respiratory: Denies Short of air Cardiac: Reports Chest pain GI: Denies Abdominal pain or Vomiting : Denies Frequency Musculoskeletal: Denies Neck pain Skin: Denies Rash Neurological: Denies Cognitive dysfunction All Other Systems: Other [facility] Medical History (Updated 03/25/22 @ 13:52 by NICHOLAS SANTILLAN MD) Hyperlipidemia Hypertension Family History Mother Breast cancer, right, Onset Age: 53 Other Hypertension Social History Smoking and tobacco status: Never smoker Substance use type: does not use Surgical History Status post coronary artery bypass graft Female Reproductive History Menstrual Hx Hysterectomy: No Hx Tubal Ligation: No Physical Exam Physical Exam Appearance: Reports Well-appearing Ill-appearing: None Pain Distress: Mild Eyes: Reports PREETI, EOMI and Conjunctiva clear ENT: Reports Oropharynx normal Neck: Supple Respiratory: Reports Airway patent, Breath sounds clear and Breath sounds equal Cardiovascular: Reports RRR GI/: Reports Soft and Nontender Musculoskeletal: Reports ROM intact and No edema Skin: Reports Warm and Dry Neurological: Reports Alert and Oriented Psychiatric: Reports Affect appropriate Interpretation Radiology Interpretation Radiology Interpretation By: Radiologist Exam Interpreted: CXR Xray Comments: right pleural effusion EKG Interpretation Time of EKG #1: 13:51 Rate: Normal Rhythm: Sinus Interpretation: no stemi Critical Care Note Critical Care Note Total Critical Care Time (mins): 0 Course Course Hematology/Chemistry: 03/25/22 11:35 03/25/22 11:35 Orders, Labs, Meds: Lab Review 03/25/22 03/25/22 03/25/22 11:20 11:35 11:35 WBC 10.77 H RBC 4.38 Hgb 13.9 Hct 42.2 MCV 96.3 MCH 31.7 H MCHC 32.9 RDW Coeff of Leanne 13.1 Plt Count 228 Immature Gran % (Auto) 0.5 Neut % (Auto) 73.5 Lymph % (Auto) 14.8 [place] % (Auto) 9.2 Eos % (Auto) 1.5 Baso % (Auto) 0.5 Neut # (Auto) 7.9 H Lymph # (Auto) 1.6 [place] # (Auto) 1.0 Eos # (Auto) 0.2 Baso # (Auto) 0.1 Immature Gran # (Auto) 0.1 PT 10.3 INR 0.99 Sodium Potassium Chloride Carbon Dioxide Anion Gap BUN Creatinine Estimated GFR (MDRD) BUN/Creatinine Ratio Glucose Calcium Total Bilirubin AST ALT Alkaline Phosphatase Troponin I Total Protein Albumin Globulin Albumin/Globulin Ratio Lipase SARS CoV-2 RNA Rapid DEEPIKA Negative 03/25/22 11:35 WBC RBC Hgb Hct MCV MCH MCHC RDW Coeff of Leanne Plt Count Immature Gran % (Auto) Neut % (Auto) Lymph % (Auto) [place] % (Auto) Eos % (Auto) Baso % (Auto) Neut # (Auto) Lymph # (Auto) [place] # (Auto) Eos # (Auto) Baso # (Auto) Immature Gran # (Auto) PT INR Sodium 140.3 Potassium 3.94 Chloride 106.8 Carbon Dioxide 26.0 Anion Gap 11.44 BUN 11.9 Creatinine 0.64 Estimated GFR (MDRD) 88.00 BUN/Creatinine Ratio 18.59 Glucose 102.9 Calcium 8.95 Total Bilirubin 0.86 AST 17.8 ALT 12.1 Alkaline Phosphatase 83.4 Troponin I < 0.012 Total Protein 7.35 Albumin 4.02 Globulin 3.33 Albumin/Globulin Ratio 1.20 Lipase 72.9 SARS CoV-2 RNA Rapid DEEPIKA Orders Category Date Time Status EKG-(ED ONLY) Stat CARDIO 03/25/22 10:46 Completed CBC W/ AUTO DIFF Stat LAB 03/25/22 11:35 Completed CMP [COMPREHENSIVE METABOLIC PANEL] Stat LAB 03/25/22 11:35 Completed LIPASE Stat LAB 03/25/22 11:35 Completed PT WITH INR Stat LAB 03/25/22 11:35 Completed SARS COV-2 RNA RAPID DEEPIKA Stat LAB 03/25/22 11:20 Completed TROPONIN I Stat LAB 03/25/22 11:35 Completed Aspirin [Aspirin Chewable] MEDS 03/25/22 10:43 Discontinued 324 mg PO ONCE STA Mag-Al Plus//Lidocaine [Gi Cocktail] MEDS 03/25/22 10:43 Discontinued 30 ml PO ONCE ONE Morphine Sulfate [Morphine 2 mg/ml Syringe] MEDS 03/25/22 10:43 Discontinued 2 mg IVP ONCE ONE Morphine Sulfate [Morphine 2 mg/ml Syringe] MEDS 03/25/22 12:04 Discontinued 2 mg IVP ONCE ONE Ondansetron HCl/Pf [Zofran 4 mg/2 ml] MEDS 03/25/22 11:02 Discontinued 4 mg IVP ONCE ONE CHEST, 1V AP ONLY Stat RADS 03/25/22 10:43 Completed Medications Discontinued Medications Generic Name Dose Route Start Last Admin Trade Name Freq PRN Reason Stop Dose Admin Al Hydroxide/Mg Hydroxide 30 ml 03/25/22 10:43 03/25/22 11:33 Mag-Al Plus//Lidocaine 30 Ml Btl PO 03/25/22 10:44 30 ml ONCE ONE Administration Aspirin 324 mg 03/25/22 10:43 03/25/22 10:46 Aspirin 81 Mg Tab.Chew PO 03/25/22 10:44 Not Given ONCE STA Morphine Sulfate 2 mg 03/25/22 10:43 03/25/22 11:27 Morphine Sulfate 2 Mg/Ml Syringe IVP 03/25/22 10:44 2 mg ONCE ONE Administration Morphine Sulfate 2 mg 03/25/22 12:04 03/25/22 12:08 Morphine Sulfate 2 Mg/Ml Syringe IVP 03/25/22 12:05 2 mg ONCE ONE Administration Ondansetron HCl 4 mg 03/25/22 11:02 03/25/22 11:26 Ondansetron Hcl/Pf 4 Mg/2 Ml Sdv IVP 03/25/22 11:03 4 mg ONCE ONE Administration Vital Signs: Temp Pulse Resp BP Pulse Ox 03/25/22 10:11 97.5 F L 65 18 166/76 H 96 QUE Risk Score QUE Risk Score: Risk Score Odds of by 30D 0 0.1 (0.1-0.2) 1 0.3 (0.2-0.3) 2 0.4 (0.3-0.5) 3 0.7 (0.6-0.9) 4 1.2 (1.0-1.5) 5 2.2 (1.9-2.6) 6 3.0 (2.5-3.6) 7 4.8 (3.8-6.1) Discharge Plan Discharge Patient Disposition: ADMITTED INPATIENT Discharge Problem: Chest pain Prescriptions: No Action aspirin,buffd-calcium carb-mag 325 MG tablet 325 mg PO DAILY ascorbic acid (vitamin C) [Vitamin C] 500 MG capsule, extended release 500 mg PO DAILY lovastatin [Mevacor] 20 MG tablet 20 mg PO DAILY vitamin E 400 UNIT capsule 400 unit PO DAILY metoprolol tartrate 25 MG tablet 25 mg PO DAILY omega-3 fatty acids-fish oil 1 EACH capsule 1 ea PO DAILY Lumigan 0.01 % Drops 1 drp BOTHEYES QPM calcium 600 mg Capsule 600 mg PO DAILY dorzolamide-timolol 22.3-6.8 mg/mL drops 1 drp BOTHEYES BID Label Comments: INSTILL 1 DROP IN BOTH EYES TWICE DAILY Did you review [place] PENCIL MAKER?: Not Applicable ED Provider: NICHOLAS SANTILLAN Condition: Stable Physician Progress Note: []admit to tele d/w Dr Romeo
[2022-03-25] MEDS ORDERED: ZOFRAN 4 MG/2 ML IVP ONE (11:02)
[2022-03-25 11:42] LABS: BASOPHILS # (AUTO) 0.1 K/uL (0-0.2); BASOPHILS % (AUTO) 0.5 % (0.0-3.0); EOSINOPHILS # (AUTO) 0.2 K/ul (0.0-0.7); EOSINOPHILS % (AUTO) 1.5 % (0.0-7.0); HEMATOCRIT 42.2 % (37.0-47.0); HEMOGLOBIN 13.9 g/dl (12.0-16.0); IMMATURE GRANULOCYTE # (AUTO) 0.1 (0.0-1.0); IMMATURE GRANULOCYTE % (AUTO) 0.5 % (0.0-5.0); LYMPHOCYTES # (AUTO) 1.6 K/uL (0.60-3.4); LYMPHOCYTES % (AUTO) 14.8 (10.0-50.0); MEAN CORPUSCULAR HEMOGLOBIN 31.7 pg (27.0-31.0); MEAN CORPUSCULAR HGB CONC 32.9 (31.8-35.4); MEAN CORPUSCULAR VOLUME 96.3 fl (81.0-99.0); MONOCYTES % (AUTO) 9.2 (0-10); NEUTROPHILS # (AUTO) 7.9 K/ul (2.0-6.9); NEUTROPHILS % (AUTO) 73.5 % (42.2-75.2); PLATELET COUNT 228 10^3/uL (140-440); RDW COEFFICIENT OF VARIATION 13.1 % (11.6-14.8); RED BLOOD COUNT 4.38 10^6/ul (4.20-5.40); WHITE BLOOD COUNT 10.77 K/ul (4.6-10.2)
[2022-03-25 11:54] LABS: POTASSIUM 3.94 mmol/L (3.5-5.1)
[2022-03-25 11:55] LABS: PROTHROMBIN TIME 10.3 SEC (9.3-11.0)
[2022-03-25 11:57] LABS: ALANINE AMINOTRANSFERASE 12.1 U/L (0-35); ALBUMIN 4.02 g/dL (3.5-5.0); ALKALINE PHOSPHATASE 83.4 U/L (53-141); ASPARTATE AMINO TRANSFERASE 17.8 U/L (14-36); BILIRUBIN,TOTAL 0.86 mg/dL (0.2-1.3); BLOOD UREA NITROGEN 11.9 mg/dL (7-17); CALCIUM 8.95 mg/dL (8.4-10.2); CHLORIDE 106.8 mmol/L (98-107); CREATININE 0.64 mg/dL (0.60-1.30); GLUCOSE 102.9 mg/dL (74-106); LIPASE 72.9 U/L (23-300); SODIUM 140.3 mmol/L (134.5-145); TOTAL PROTEIN 7.35 g/dL (6.3-8.2)
[2022-03-25 12:06] LABS: TROPONIN I < 0.012 ng/ml (0.0000-0.120)
--- NOTE | 2022-03-25 12:08 | DI ---
EXAMINATION: AP chest radiograph. HISTORY: Chest pain COMPARISON: 02/17/2021 FINDINGS: Mild left costophrenic angle blunting is seen.No consolidation or pneumothorax is seen. The cardiomediastinal silhouette is within normal limits. Operative changes of CABG are seen. The osseous structures appear unchanged. IMPRESSION: Small left pleural effusion.
[2022-03-25] MEDS ORDERED: TYLENOL PO PRN (13:52)
[2022-03-25] MEDS ORDERED: ATROPINE SULFATE PFS IVP PRN (13:54)
[2022-03-25] MEDS ORDERED: NITROSTAT SL PRN (13:54)
[2022-03-25 14:25] LABS: CREATINE KINASE 29.6 U/L (30-135)
[2022-03-25 14:46] LABS: TROPONIN I < 0.012 ng/ml (0.0000-0.120)
[2022-03-25] MEDS: SODIUM CHLORIDE 1,000 ML IV SCH (15:17)
[2022-03-25 15:21] VITALS: BMI 24.5
[2022-03-25] MEDS ORDERED: DECADRON IM ONE (16:27)
[2022-03-25] MEDS ORDERED: TORADOL IVP PRN (16:28)
[2022-03-25] MEDS ORDERED: BIMATOPROST 0.01% OP SCH (17:00)
[2022-03-25] MEDS ORDERED: MEVACOR PO SCH (17:00)
[2022-03-25] MEDS: ZOFRAN 4 MG/2 ML IVP SCH ×2 (17:15→21:23)
[2022-03-25] MEDS: PROTONIX IV IVP SCH (17:40)
[2022-03-25 20:22] LABS: BILIRUBIN,URINE Negative (NEGATIVE); CLARITY,URINE Turbid (CLEAR); COLOR,URINE Yellow (YELLOW); GLUCOSE, URINE (UA) Negative (NEGATIVE); KETONES,URINE Negative (NEGATIVE); LEUKOCYTE ESTERASE ,URINE 2+ (NEGATIVE); NITRITE,URINE Positive (NEGATIVE); PROTEIN,URINE Negative (NEGATIVE); URINE, BLOOD 1+ (NEGATIVE); UROBILINOGEN,URINE 0.2 (0.2)
[2022-03-25 20:28] LABS: SQUAMOUS EPITHELIAL CELL,UR NOT PRESENT (0-5); URINE WBC, MICROSCOPIC 50-100 (0-2)
[2022-03-25 20:29] LABS: BACTERIA,URINE 4+ (NOT PRESENT)
[2022-03-25] MEDS ORDERED: LUMIGAN 0.03% EACHEYE SCH (21:00)
[2022-03-25] MEDS ORDERED: DORZOLAMIDE TIMOLOL OP SCH (21:00)
[2022-03-25] MEDS: COSOPT EACHEYE SCH (21:10)
[2022-03-25 22:21] LABS: CREATINE KINASE 34.4 U/L (30-135)
[2022-03-25 22:39] LABS: TROPONIN I < 0.012 ng/ml (0.0000-0.120)
[2022-03-26] MEDS: SODIUM CHLORIDE 1,000 ML IV SCH (03:38)
[2022-03-26 05:35] LABS: BASOPHILS % (AUTO) 0.3 % (0.0-3.0); HEMATOCRIT 38.6 % (37.0-47.0); HEMOGLOBIN 12.2 g/dl (12.0-16.0); IMMATURE GRANULOCYTE % (AUTO) 0.5 % (0.0-5.0); LYMPHOCYTES # (AUTO) 0.9 K/uL (0.60-3.4); LYMPHOCYTES % (AUTO) 14.8 (10.0-50.0); MEAN CORPUSCULAR HEMOGLOBIN 30.6 pg (27.0-31.0); MEAN CORPUSCULAR HGB CONC 31.6 (31.8-35.4); MEAN CORPUSCULAR VOLUME 96.7 fl (81.0-99.0); MONOCYTES # (AUTO) 0.3 K/uL (0.4-2.0); MONOCYTES % (AUTO) 5.4 (0-10); NEUTROPHILS # (AUTO) 4.8 K/ul (2.0-6.9); PLATELET COUNT 215 10^3/uL (140-440); RDW COEFFICIENT OF VARIATION 13.1 % (11.6-14.8); RED BLOOD COUNT 3.99 10^6/ul (4.20-5.40)
[2022-03-26] MEDS: ZOFRAN 4 MG/2 ML IVP SCH (06:00)
[2022-03-26] MEDS: PROTONIX IV IVP SCH ×2 (06:03→18:27)
[2022-03-26 06:04] LABS: ALANINE AMINOTRANSFERASE 10.6 U/L (0-35); ALBUMIN 3.54 g/dL (3.5-5.0); ALKALINE PHOSPHATASE 76.2 U/L (53-141); ASPARTATE AMINO TRANSFERASE 16.2 U/L (14-36); BILIRUBIN,TOTAL 0.74 mg/dL (0.2-1.3); BLOOD UREA NITROGEN 12.5 mg/dL (7-17); CALCIUM 8.52 mg/dL (8.4-10.2); CARBON DIOXIDE 21.8 mmol/L (22-30.0); CHLORIDE 108.3 mmol/L (98-107); CREATININE 0.63 mg/dL (0.60-1.30); GLUCOSE 123.4 mg/dL (74-106); POTASSIUM 4.51 mmol/L (3.5-5.1); SODIUM 138.6 mmol/L (134.5-145); TOTAL PROTEIN 6.64 g/dL (6.3-8.2)
[2022-03-26 06:18] LABS: TROPONIN I < 0.012 ng/ml (0.0000-0.120)
[2022-03-26] MEDS ORDERED: ASPIRIN EC PO SCH (08:30)
[2022-03-26] MEDS ORDERED: CALCIUM 500 + VIT D 5 MCG (200 IU) TABLET PO SCH (09:00)
[2022-03-26] MEDS ORDERED: MEVACOR PO SCH (09:00)
[2022-03-26] MEDS ORDERED: OMEGA PO SCH (09:00)
[2022-03-26] MEDS ORDERED: VITAMIN E 400 UNIT PO SCH (09:00)
[2022-03-26] MEDS ORDERED: VITAMIN C PO SCH (09:00)
[2022-03-26] MEDS ORDERED: VITAMIN E PO SCH (09:00)
[2022-03-26] MEDS ORDERED: NON-FORMULARY MEDICATION (Aspirin,Buffd-Calcium Carb-Mag 325 MG tablet) PO SCH (09:00)
[2022-03-26] MEDS ORDERED: ASCORBIC ACID 500 MG PO SCH (09:00)
[2022-03-26] MEDS ORDERED: LOPRESSOR PO SCH (09:00)
[2022-03-26] MEDS ORDERED: [UNRECOGNIZED DRUG - OTHER] PO SCH (09:00)
[2022-03-26] MEDS ORDERED: OMEGA-3 FISH OIL PO SCH (09:00)
[2022-03-26] MEDS ORDERED: [UNRECOGNIZED DRUG - OTHER] PO SCH (09:00)
[2022-03-26] MEDS ORDERED: NON-FORMULARY MEDICATION (Calcium 600 mg Capsule) PO SCH (09:00)
[2022-03-26] MEDS: COSOPT EACHEYE SCH (10:25)
--- NOTE | 2022-03-26 10:43 | PCM.PROG ---
Attending Provider: ATTENDING PROVIDER: Dr. RAJANI VALDEZ DATE OF SERVICE: 03/26/22 SUBJECTIVE: This 82 year old /WHITE F was hospitalized 03/25/22 with back pain coming to upper sternal area. Pain has resolved with Toradol and steroids. Pain is fairly atypical for coronary insufficiency. She has a history of coronary bypass. REVIEW OF SYSTEMS: CONSTITUTIONAL: No night sweats. No fatigue, malaise, lethargy. No fever or chills. Feels a lot better. HEENT: Eyes: No visual changes. No eye pain. No eye discharge. ENT: No runny nose. No epistaxis. No sinus pain. No odynophagia. No congestion. RESPIRATORY: No cough, no congestion. No hemoptysis. No shortness of breath. CARDIOVASCULAR: No angina symptoms. No CHF symptoms. No atypical chest pain for CAD. No palpitations. No orthopnea.. GASTROINTESTINAL: No abdominal pain. No nausea or vomiting. No diarrhea or c onstipation. No hematemesis. No hematochezia. GENITOURINARY: No urgency. No frequency. No dysuria. No hematuria. No obstructive symptoms. No discharge. No pain. No significant abnormal bleeding. MUSCULOSKELETAL: No musculoskeletal pain; no joint swelling. NEUROLOGICAL: Awake, alert, oriented to time, place and person. No headache. No neck pain. No syncope. No seizures. No dizziness. PSYCHIATRIC: Not anxious. No depression. No suicidal thoughts. No homicidal thoughts. SKIN: No rash. No lesions. No wounds. ENDOCRINE: No unexplained weight loss. No weight gain. HEMATOLOGIC/LYMPHATIC: No anemia. No purpura. No petechiae. No prolonged or excessive bleeding. No palpable lymph nodes. PHYSICAL EXAMINATION: GENERAL: The patient is awake, alert and oriented, sitting in bed in no distress. VITAL SIGNS: Temperature 97.4 F, Pulse 50, Respiratory Rate 16, BP 112/62, Pul se Ox 98% HEENT: Head normocephalic, atraumatic. Eyes: Extraocular muscles are intact. Pupils are equal, round and reactive to light and accommodation. Ears: No lesions. Nose appeared normal. Throat: No exudate or erythema. NECK: Supple. No JVD, no carotid bruit. No lymphadenopathy or thyromegaly. LUNGS: Clear to auscultation. Percussion note normal. Chest symmetrical. HEART: S1, S2, no S3. No murmurs. No cyanosis or clubbing. No ascites. Pulses: Dorsalis pedis and posterior tibial pulses +1 to +2 both sides. ABDOMEN: Soft. Non-tender. Bowel sounds active. No CVA tenderness. No mass felt. EXTREMITIES: No edema. Full range of motion of all extremities, equal. NEUROLOGIC: No focal deficit. Cranial nerves II through XII are grossly intact. No headache, no double vision or headache. SKIN: Warm and dry. Intact. Turgor-normal. LYMPHATIC: No palpable lymph nodes/no lymphedema. MUSCULOSKELETAL: Normal joints with no swelling. Muscle tone is normal. LAB REVIEW: 03/26/22 05:04 03/26/22 05:04 03/26/22 05:04: WBC 6.10, RBC 3.99 L, Hgb 12.2, Hct 38.6, MCV 96.7, MCH 30.6, MCHC 31.6 L, RDW Coeff of Leanne 13.1, Plt Count 215, Immature Gran % (Auto) 0.5, Neut % (Auto) 79.0 H, Lymph % (Auto) 14.8, [place] % (Auto) 5.4, Eos % (Auto) 0.0, Baso % (Auto) 0.3, Neut # (Auto) 4.8, Lymph # (Auto) 0.9, [place] # (Auto) 0.3 L, Eos # (Auto) 0.0, Baso # (Auto) 0.0, Immature Gran # (Auto) 0.0 03/26/22 05:04: Sodium 138.6, Potassium 4.51, Chloride 108.3 H, Carbon Dioxide 21.8 L, Anion Gap 13.01, BUN 12.5, Creatinine 0.63, Estimated GFR (MDRD) 90.00, BUN/Creatinine Ratio 19.84, Glucose 123.4 H, Calcium 8.52, Total Bilirubin 0.74, AST 16.2, ALT 10.6, Alkaline Phosphatase 76.2, Troponin I < 0.012, Total Protein 6.64, Albumin 3.54, Globulin 3.10, Albumin/Globulin Ratio 1.14 03/25/22 21:50: Total Creatine Kinase 34.4, Troponin I < 0.012 03/25/22 14:10: Total Creatine Kinase 29.6 L, Troponin I < 0.012 03/25/22 11:35: Sodium 140.3, Potassium 3.94, Chloride 106.8, Carbon Dioxide 26.0, Anion Gap 11.44, BUN 11.9, Creatinine 0.64, Estimated GFR (MDRD) 88.00, BUN/Creatinine Ratio 18.59, Glucose 102.9, Calcium 8.95, Total Bilirubin 0.86, AST 17.8, ALT 12.1, Alkaline Phosphatase 83.4, Troponin I < 0.012, Total Protein 7.35, Albumin 4.02, Globulin 3.33, Albumin/Globulin Ratio 1.20, Lipase 72.9 03/25/22 11:35: PT 10.3, INR 0.99 03/25/22 11:35: WBC 10.77 H, RBC 4.38, Hgb 13.9, Hct 42.2, MCV 96.3, MCH 31.7 H, MCHC 32.9, RDW Coeff of Leanne 13.1, Plt Count 228, Immature Gran % (Auto) 0.5, Neut % (Auto) 73.5, Lymph % (Auto) 14.8, [place] % (Auto) 9.2, Eos % (Auto) 1.5, Baso % (Auto) 0.5, Neut # (Auto) 7.9 H, Lymph # (Auto) 1.6, [place] # (Auto) 1.0, Eos # (Auto) 0.2, Baso # (Auto) 0.1, Immature Gran # (Auto) 0.1 03/25/22 11:20: SARS CoV-2 RNA Rapid DEEPIKA Negative 03/25/22 09:50: Urine Color Yellow, Urine Clarity Turbid, Urine pH 6.0, Ur Specific [place] >=1.030, Urine Protein Negative, Urine Glucose (UA) Negative, Urine Ketones Negative, Urine Blood 1+ H, Urine Nitrite Positive H, Urine Bilirubin Negative, Urine Urobilinogen 0.2, Ur Leukocyte Esterase 2+ H, Urine Microscopic RBC 10-20, Urine Microscopic WBC 50-100, Ur Squamous Epith Cells Not present, Urine Bacteria 4+ ASSESSMENT: Please see below. 1. Thoracic spine pain radiating to chest likely from neuromuscular problem resolved with Toradol and steroids. Cardiac markers and EKG are normal. PLAN: 1. Will do echo before discharge 2. Cardiovascular status is stable 3. Going to be seen in office in 5-7 days. Plan and coordination of the patient's care discussed in the presence of Aircraft Maintenance Director and nurse. SCRIBED BY: Juan Jose ARROYO scribed while in presence of service performed by Dr. RAJANI VALDEZ on 03/26/22 ([id number])
--- NOTE | 2022-03-26 10:48 | SSS ---
DATE OF SERVICE: 03/26/22 REASON FOR ADMISSION/HISTORY OF PRESENT ILLNESS: This 82 year old /WHITE F was hospitalized 03/25/22 with back pain coming to upper sternal area. Pain has resolved with Toradol and steroids. Pain is fairly atypical for coronary insufficiency. She has a history of coronary bypass. REVIEW OF SYSTEMS: CONSTITUTIONAL: No night sweats. No fatigue, malaise, lethargy. No fever or chills. HEENT: Eyes: No visual changes. No eye pain. No eye discharge. ENT: No runny nose. No epistaxis. No sinus pain. No sore throat. No odynophagia. No ear pain. No congestion. RESPIRATORY: No cough, no congestion. No hemoptysis. No shortness of breath. CARDIOVASCULAR: No angina symptoms. No CHF symptoms. No atypical chest pain for CAD. No palpitations. No orthopnea. GASTROINTESTINAL: No abdominal pain. No nausea or vomiting. No diarrhea or constipation. No hematemesis. No hematochezia. GENITOURINARY: No dysuria. No hematuria. No obstructive symptoms. No discharge. No pain. No significant abnormal bleeding. MUSCULOSKELETAL: No musculoskeletal pain. No joint swelling. NEUROLOGICAL: Awake, alert, oriented to time, place and person. No headache. No neck pain. No syncope. No seizures. No dizziness. PSYCHIATRIC: Not anxious. No depression. No suicidal thoughts. No homicidal thoughts. SKIN: No rash. No lesions. No wounds. ENDOCRINE: No unexplained weight loss. No weight gain. HEMATOLOGIC/LYMPHATIC: No anemia. No purpura. No petechiae. No prolonged or excessive bleeding. No palpable lymph nodes. PAST MEDICAL HISTORY: Urinary incontinence with prolapsed bladder Dizziness History of herpes zoster in July of 2018 GERD Glaucoma Coronary artery disease Hypertension Hiatal hernia Hyperglycemia Right knee osteoarthritis Asthma Degenerative disk disease of the L-spine Hearing loss PAST SURGICAL HISTORY: CABG in 2001 Colonoscopy in November of 2017 PERSONAL/FAMILY HISTORY/SOCIAL HISTORY: The patient is . She is nonsmoker. No alcohol or illicit drug use. PHYSICAL EXAMINATION: VITAL SIGNS: Temperature 97.4 F, Pulse 50, Respiratory Rate 16, BP 112/62, Pulse Ox 98% HEENT: Head normocephalic, atraumatic. Eyes: Extraocular muscles are intact. Pupils are equal, round and reactive to light and accommodation. Ears: No lesions. Nose appeared normal. Throat: No exudate or erythema. NECK: Supple. No JVD, no carotid bruit. No lymphadenopathy or thyromegaly. LUNGS: Clear to auscultation. Percussion note normal. Chest symmetrical. HEART: S1, S2, no S3. No murmurs. No cyanosis or clubbing. No ascites. Pulses: Dorsalis pedis and posterior tibial pulses +1 to +2 bilaterally. ABDOMEN: Soft. Nontender. Bowel sounds active. No CVA tenderness. No mass felt. EXTREMITIES: No edema. Full range of motion of all extremities, equal. NEUROLOGIC: No focal deficit. Cranial nerves II through XII are grossly intact. No headache, no double vision or headache. SKIN: Not dry. Intact. Turgor - normal. LYMPHATIC: No palpable lymph nodes/no lymphedema. MUSCULOSKELETAL: Normal joints with no swelling. Muscle tone is normal. ALLERGIES: Levobunolol MEDICATIONS: [place] 3 PO daily Aspirin, buffd-calcium carb-mag 325mg PO daily Vitamin C 500mg PO daiy Vitamin E 400 units PO daily Metoprolol Tartrate 25mg PO daily Mevacor 20mg PO daily Lumigan 1 drop both eyes QPM Dorzolamide-Timolol 22.3-6.8 one drop both eyes BID Calcium 600mg PO daily HOSPITAL COURSE: 82 year old white female hospitalized with back pain and chest pain ruled out to have coronary insufficiency very likely neuromuscular pain with pinched nerve in back responded to Toradol and steroids. Telemetry didn't show any arrhythmias,no ST-T wave changes noted. Cardiac work and EKG unchanged and normal. The patient to be discharge, echo pending. T-spine reports pending. She is to be seen in 5-7 days. DIAGNOSES: 1. Back pain 2. Chest pain 3. Noncardiac likely from neuromuscular 4. Coronary bypass surgery 5. Dyslipidemia 6. Kyphosis, mild with osteoporosis RECOMMENDATIONS/PLAN: 1. Discharge home 2. No new medications 3. Continue rest of medications as before. TIME SPENT: More than 70 minutes. MTDD
--- NOTE | 2022-03-26 12:15 | DI ---
EXAM: Thoracic spine HISTORY: Back pain COMPARISON: None. FINDINGS: Test AP lateral and swimmer's views are obtained. Thoracic vertebrae are relatively aligned. Mild hypertrophic endplate changes noted T8-9, T9 the T10 -T11 levels. Old compression deformity of L-1 is noted and hypertrophic degenerative changes present in the L1-L2 endplate level. IMPRESSION: Mild degenerative changes noted in the thoracic spine and old compression deformity of L 1 is noted. No acute osseous injuries identified in the thoracic spine.
[2022-03-26] MEDS ORDERED: ZOFRAN 4 MG/2 ML IVP PRN (12:24)
[2022-03-26 14:25] VITALS: BP 122/62; TEMP 97.5
[2022-03-26] MEDS ORDERED: ROCEPHIN 1 GM VIAL IM ONE (17:42)
[2022-03-26] MEDS ORDERED: LIDOCAINE HCL 1% SDV IM STA (17:42)
== END 2022-03-26 19:10 | disposition home or self-care (01) | DRG 552 ==
LOC: ED 10:10 → MEDSURG A 13:55
PROVIDERS: ADMIT Internal Medicine; ATTEND Internal Medicine
DX: E78.5 Hyperlipidemia, unspecified; M40.294 Other kyphosis, thoracic region; Z20.822 Contact with and (suspected) exposure to COVID-19; Z79.899 Other long term (current) drug therapy; M54.9 Dorsalgia, unspecified; Z95.1 Presence of aortocoronary bypass graft; Z79.82 Long term (current) use of aspirin; M81.0 Age-related osteoporosis without current pathological fracture; Z51.81 Encounter for therapeutic drug level monitoring; M54.6 Pain in thoracic spine; R07.9 Chest pain, unspecified